=== PATIENT | male | born 1990 | race Caucasian/White ===

== ENCOUNTER 2018-03-12 14:43 | Inpatient (IN) | payer MEDICAID ==
[~2018-03-12] VITALS: Ht 167.6 cm; Wt 83.2 kg
[2018-03-12] MEDS ORDERED: SOD CHLORIDE 0.9% 1,000 ML IV STA (17:36)
[2018-03-12] MEDS ORDERED: IBUPROFEN 600 MG TAB PO ONE (18:00)
[2018-03-12] MEDS ORDERED: VANCOMYCIN 1 GM (PMX) 250 ML IVPB ONE (18:00)
[2018-03-12] MEDS ORDERED: PIPER-TAZO 3.375 GM IV (PMX) 100 ML IVPB ONE (18:00)
[2018-03-12] MEDS ORDERED: SOD CHLORIDE 0.9% 100 ML ONE (19:27)
[2018-03-12] MEDS ORDERED: IOHEXOL 300MG/ML 150 ML BTL ONE (19:27)
[2018-03-12] MEDS ORDERED: ONDANSETRON 4 MG INJ IV PRN (19:30)
[2018-03-12] MEDS ORDERED: HYDROCODONE/APAP (5/325) TAB PO PRN (19:30)
[2018-03-12] MEDS ORDERED: MAGNESIUM HYDROXIDE 30ML CUP PO PRN (19:30)
[2018-03-12] MEDS ORDERED: DOCUSATE SODIUM 100 MG CAP PO PRN (19:30)
[2018-03-12] MEDS ORDERED: ALBUTEROL/IPRATROPIUM (NEB) 3 ML AMP HHN PRN (19:30)
[2018-03-12] MEDS ORDERED: ACETAMINOPHEN 325 MG TAB PO PRN (19:30)
[2018-03-12] MEDS ORDERED: hydrALAzine 20 MG INJ IV PRN (19:30)
[2018-03-12] MEDS ORDERED: NITROGLYCERIN (SL) 0.4 MG TAB SL PRN (19:30)
[2018-03-12] MEDS ORDERED: NACL 0.9% 3 ML SYG IV SCH (19:30)
[2018-03-12] MEDS ORDERED: LORAZEPAM 2 MG INJ IV PRN (19:30)
[2018-03-12] MEDS ORDERED: morphine 4 MG/ML VIAL IV PRN (19:30)
--- NOTE | 2018-03-12 21:25 | ERD ---
ER Documentation Chief Complaint Chief Complaint right arm swelling , rednesss x 5 days HPI 27-year-old man complains of right arm redness, swelling, purulent discharge times 1 week. He left AGAINST MEDICAL ADVICE from [facility] yesterday but states he did receive 1 dose of IV antibiotics while in the ED. Patient has a history of drug abuse and injects drugs into his extremities. He denies fevers or chills, no chest pain or shortness of breath, no headache or blurry vision. ROS All systems reviewed and are negative except as per history of present illness. Medications Home Meds No Active Prescriptions or Reported Meds Allergies Allergies: Coded Allergies: No Known Allergy (Unverified , 03/12/18) PMhx/Soc IV drug abuse Medical and Surgical Hx: pt denies Medical Hx, pt denies Surgical Hx Hx Alcohol Use: No Hx Substance Use: No Hx Tobacco Use: No Smoking Status: Never smoker FmHx Family History: No diabetes Physical Exam Vitals Vital Signs Date Temp Pulse Resp B/P (MAP) Pulse Ox O2 O2 Flow FiO2 Time Delivery Rate 03/12/18 97.6 79 19 138/82 99 Room Air 17:25 (100) 03/12/18 97.6 87 18 141/78 99 14:49 (99) Physical Exam Const: No acute distress, afebrile Head: Atraumatic Eyes: Normal Conjunctiva ENT: Normal External Ears, Nose and Mouth. Neck: Full range of motion. No meningismus. Resp: Clear to auscultation bilaterally Cardio: Regular rate and rhythm, no murmurs Abd: Soft, non tender, non distended. Normal bowel sounds Skin: Diffuse skin erythema and induration over the right upper extremity consistent with cellulitis, no ulcers or vesicles noted, positive draining pustule Back: No midline or flank tenderness Ext: No cyanosis, patient has right upper extremity edema diffusely with diffuse erythema and induration, small draining pustule from the forearm as well Neur: Awake and alert x3, no focal deficits or facial asymmetry Psych: Normal Mood and Affect Result Diagram: 03/12/18181403/12/181814 Results 24 hrs Laboratory Tests Test 03/12/18 18:15 White Blood Count 7.8 10^3/ul Red Blood Count 4.67 10^6/ul Hemoglobin 13.3 g/dl Hematocrit 42.0 % Mean Corpuscular Volume 89.9 fl Mean Corpuscular Hemoglobin 28.5 pg Mean Corpuscular Hemoglobin Concent 31.7 g/dl Red Cell Distribution Width 12.8 % Platelet Count 332 10^3/UL Mean Platelet Volume 9.4 fl Immature Granulocytes % 0.400 % Neutrophils % 60.0 % Lymphocytes % 23.5 % Monocytes % 11.9 % Eosinophils % 3.7 % Basophils % 0.5 % Nucleated Red Blood Cells % 0.0 /100WBC Immature Granulocytes # 0.030 10^3/ul Neutrophils # 4.7 10^3/ul Lymphocytes # 1.8 10^3/ul Monocytes # 0.9 10^3/ul Eosinophils # 0.3 10^3/ul Basophils # 0.0 10^3/ul Nucleated Red Blood Cells # 0.0 10^3/ul Prothrombin Time 12.0 Sec Prothrombin Time Ratio 0.9 INR International Normalized Ratio 0.88 Activated Partial Thromboplast Time 32.8 Sec Sodium Level 141 mmol/L Potassium Level 3.7 mmol/L Chloride Level 99 mmol/L Carbon Dioxide Level 28 mmol/L Anion Gap 14 Blood Urea Nitrogen 7 mg/dl Creatinine 0.71 mg/dl Est Glomerular Filtrat Rate mL/min > 60 mL/min Glucose Level 90 mg/dl Calcium Level 9.6 mg/dl Total Bilirubin 0.2 mg/dl Direct Bilirubin 0.00 mg/dl Indirect Bilirubin 0.2 mg/dl Aspartate Amino Transf (AST/SGOT) 23 IU/L Alanine Aminotransferase (ALT/SGPT) 16 IU/L Alkaline Phosphatase 98 IU/L Total Protein 8.1 g/dl Albumin 4.4 g/dl Globulin 3.70 g/dl Albumin/Globulin Ratio 1.18 Lipase < 10 U/L Free Thyroxine 1.21 ng/dl Current Medications Medications Dose Sig/Ijeoma Start Time Status Last (Trade) Ordered Route PRN Stop Time Admin Dose Reason Admin Piperacillin 100 ml @ ONCE ONCE 03/12/18 DC 03/12/18 Sod/ 200 mls/hr IVPB 18:00 18:19 Tazobactam 03/12/18 18:29 Sod Vancomycin 250 ml @ ONCE ONCE 03/12/18 DC 03/12/18 HCl 125 mls/hr IVPB 18:00 18:00 03/12/18 19:59 Ibuprofen 600 mg ONCE ONCE 03/12/18 DC (Motrin) PO 18:00 03/12/18 18:01 Sodium 1,000 ml @ Q30M STAT 03/12/18 DC 03/12/18 Chloride 2,000 mls/hr IV 17:36 18:19 03/12/18 18:05 Sodium 1,000 ml @ [id number] IV 03/12/18 Chloride 75 mls/hr 19:08 Procedures/MDM IV line was established patient was placed on vehicle monitor technician rhythm strip revealed a sinus rhythm at about 80 bpm with upright P and T waves. Patient was afebrile I administered 2 L normal saline IV, ibuprofen 600 mg p.o., vancomycin 1 g IV and Zosyn 3.375 g IV I also order chest x-ray and a CT scan with IV contrast of the right upper extremity to help delineate the extent of the patient's cellulitis and determine if there is a deep space abscess. Patient refused both the studies and did not provide any reason as to why despite my and his nurses explanation as to the necessity. CBC was normal, electrolytes normal, liver function tests normal, troponin ne gative Patient will be admitted to [facility] for continued IV antibiotics and possible debridement. Departure Diagnosis: Primary Impression: Right arm cellulitis Additional Impression: IV drug abuse Condition: GIANNA Inman MD Mar 12, 2018 21:25
--- NOTE | 2018-03-12 23:33 | HP ---
Date/Time of Note Date/Time of Note DATE: 03/12/18 TIME: 23:33 Assessment/Plan Lines/Catheters IV C[facility]ter Type (from [facility]): Saline Lock Assessment/Plan Assessment/Plan 27-year-old male with history of IVDU here with right upper extremity cellulitis PLAN IV antibiotic Wound care and ID consult Methadone given history of IVDU Result Diagram: 03/12/18181403/12/181814 Results 24hrs Laboratory Tests Test 03/12/18 18:15 White Blood Count 7.8 Red Blood Count 4.67 L Hemoglobin 13.3 L Hematocrit 42.0 Mean Corpuscular Volume 89.9 Mean Corpuscular Hemoglobin 28.5 L Mean Corpuscular Hemoglobin Concent 31.7 L Red Cell Distribution Width 12.8 Platelet Count 332 Mean Platelet Volume 9.4 Immature Granulocytes % 0.400 Neutrophils % 60.0 Lymphocytes % 23.5 Monocytes % 11.9 H Eosinophils % 3.7 Basophils % 0.5 Nucleated Red Blood Cells % 0.0 Immature Granulocytes # 0.030 Neutrophils # 4.7 Lymphocytes # 1.8 Monocytes # 0.9 Eosinophils # 0.3 Basophils # 0.0 Nucleated Red Blood Cells # 0.0 Prothrombin Time 12.0 Prothrombin Time Ratio 0.9 INR International Normalized Ratio 0.88 Activated Partial Thromboplast Time 32.8 Sodium Level 141 Potassium Level 3.7 Chloride Level 99 Carbon Dioxide Level 28 Anion Gap 14 H Blood Urea Nitrogen 7 Creatinine 0.71 Est Glomerular Filtrat Rate mL/min > 60 Glucose Level 90 Calcium Level 9.6 Total Bilirubin 0.2 Direct Bilirubin 0.00 Indirect Bilirubin 0.2 Aspartate Amino Transf (AST/SGOT) 23 Alanine Aminotransferase (ALT/SGPT) 16 Alkaline Phosphatase 98 Total Protein 8.1 Albumin 4.4 Globulin 3.70 H Albumin/Globulin Ratio 1.18 Lipase < 10 L Free Thyroxine 1.21 HPI/ROS Admit Date/Time Admit Date/Time Mar 12, 2018 at 19:16 Hx of Present Illness 27-year-old male with a history of IVDU who presents the ER complaining of right upper extremity erythema, tenderness and swelling. Symptoms started about a week ago. Patient does inject into his extremities. He went to [facility] ER yesterday where he received IV antibiotic, but he left AMA. Vitals and basic labs within acceptable range. PMH/Family/Social Past Medical History Medications Current Medications IV Flush (NS 3 ml) 3 ml PER PROTOCOL IV ; Start 03/12/18 at 19:30 Ondansetron HCl (Zofran Inj) 4 mg Q6H PRN IV NAUSEA/VOMITING; Start 03/12/18 at 19:30 Acetaminophen (Tylenol Tab) 650 mg Q6H PRN PO .PAIN 1-3 OR TEMP; Start 03/12/18 at 19:30 Acetaminophen/ Hydrocodone Bitart ([place] (5/325)) 1 tab Q6H PRN PO .MOD PAIN 4- 6; Start 03/12/18 at 19:30 Morphine Sulfate (morphine) 2 mg Q4H PRN IV .SEVERE PAIN 7-10; Start 03/12/18 at 19:30 Docusate Sodium (Colace) 100 mg Q12H PRN PO .CONSTIPATION; Start 03/12/18 at 19:30 Magnesium Hydroxide (Milk Of Mag) 30 ml DAILY PRN PO .CONSTIPATION; Start 03/12/18 at 19:30 Heparin Sodium (Porcine) (Heparin (5000 Units/1ml)) 5,000 unit Q12 SC ; Start 03/12/18 at 21:00 Sodium Chloride 1,000 ml @ 75 mls/hr [id number] IV ; Start 03/12/18 at 19:08 Lorazepam (Ativan) 0.5 mg Q6H PRN IV ANXIETY; Start 03/12/18 at 19:30 Albuterol/ Ipratropium (Duoneb) 3 ml Q4H RESP THERAPY PRN HHN SHORTNESS OF BREATH; Start 03/12/18 at 19:30 Piperacillin Sod/ Tazobactam Sod 100 ml @ 200 mls/hr Q6 IVPB ; Start 03/13/18 at 00:00 Hydralazine HCl (Apresoline) 10 mg Q6H PRN IV ELEVATED BLOOD PRESSURE; Start 03/12/18 at 19:30 Nitroglycerin (Nitroglycerin (Sl Tab) 0.4 Mg) 1 tab Q5M PRN SL ANGINA; Start 03/12/18 at 19:30 Coded Allergies: No Known Allergy (Unverified , 03/12/18) Social History Smoking Status: Current every day smoker Exam/Review of Systems Vital Signs Vitals Vital Signs Date Temp Pulse Resp B/P (MAP) Pulse Ox O2 O2 Flow FiO2 Time Delivery Rate 03/12/18 97.6 75 15 137/86 100 Room Air 20:53 (103) NIRAJ CAROLINA MD Mar 12, 2018 23:33
[2018-03-12] MEDS: HEPARIN 5,000 UNIT/1 ML VIAL SC SCH (23:51)
[2018-03-12] MEDS: SOD CHLORIDE 0.45% 1,000 ML IV SCH (23:53)
[2018-03-12] MEDS: PIPER-TAZO 3.375 GM IV (PMX) 100 ML IVPB SCH (23:54)
--- NOTE | 2018-03-13 00:25 | NUR ---
CHARGE NURSE NOTE: Patient is attempting to walk off the unit to the cafeteria, advised patient he can not leave the unit. Patient said "I don't care, I'm going to do what I want. Can someone go to the cafeteria to get me food? They get me food at [place]." Advised patient he is to stay on the unit, and staff will not go get him food. Apologized for him craving food we don't have on the unit. Offered a sandwich, and Cup O Noodles, yet patient refused. Patient states he will check out and go to another hospital. Advised patient to get his cellulitis taken care of while he is here.
--- NOTE | 2018-03-13 01:10 | NUR ---
CHARGE NURSE NOTE: Security arrived to enforce staying on the unit. Patient asked for a Do Not Disturb sign, advised patient that is not possible.
[2018-03-13 02:00] VITALS: BP 133/63; PULSE 89; RESP 18
[2018-03-13] MEDS ORDERED: PENDING SANTYL ORDER FOR WOUND CARE XX PRN (03:30)
[2018-03-13] MEDS: PIPER-TAZO 3.375 GM IV (PMX) 100 ML IVPB SCH (05:19)
--- NOTE | 2018-03-13 05:20 | NUR ---
CHARGE NURSE NOTE: [employer] [place] arrived, confiscated a wet matchbook, "Delbert: brand e-cig, and black pocket knife. Items are in possession of security in a clear ziplock bag, with patient label.
--- NOTE | 2018-03-13 06:19 | NUR ---
Shift summary: Patient is a new admission. He came in for right forearm swelling. He was previously admitted to another hospital a week ago for the same problem but went home AMA. Patient is alert, oriented and ambulatory. VSS. He was restless, tried to leave the floor. Advised patient that he has an infection and needed to be treated. Patient wanted to go to the cafeteria but told it was not possible. His father came in and the patient calmed down. His father also bought him some food. He has an open wound wound on his right forearm, wound culture was sent to the lab. Wound was cleansed and covered with gauze. He also has other wounds in the body (see photo) but they are healing or scab. He was started on antibiotics. Patient has no pain. Security was called and an E-cig and a pocket knife were confiscated for safe keeping. This morning he refused blood draw. He is afebrile.
[2018-03-13] MEDS: SOD CHLORIDE 0.45% 1,000 ML IV SCH (08:28)
[2018-03-13] MEDS: HEPARIN 5,000 UNIT/1 ML VIAL SC SCH (08:35)
--- NOTE | 2018-03-13 08:56 | NUR ---
Patient continuing to refuse labs this morning. RN spoke with pt reinforcing importance of lab draw to ensure adequate ATB levels are being given and to monitor infection but pt still refusing and yelled at me to "get the f out". Will inform
--- NOTE | 2018-03-13 10:19 | NUR ---
Wound care Consult: 27-year-old male with history of IVDU here with right upper extremity cellulitis Wound care team consulted for wound present admission Right forearm open wound secondary from cellulitis. 0.8cm x 0.8cm x 0.5cm. Demarcated cellulitis wound started-out as a pustule which was punctured by patient vs IVD insertion site infection. Wound with serosanguineous drainage. Treatment recommendation include, cleanse with normal saline, pat dry, apply silver alginate dressing secured by foam border dressing daily and as needed. Raffi Linder RN MSN WOCN CM
--- NOTE | 2018-03-13 11:03 | NUR ---
Patient leaving unit AMA. Primary RN, Charge nurse, and nursing traffic sign supervisor all attempted to speak with patient regarding risks of leaving and not completing IV ATB. Pt states he is leaving anyway since we won't let him leave to smoke. RN attempted to offer to obtain doctors order for Nicotine patch or gum but pt refused. Pt agitated and adamant about leaving. IV removed with tip intact. Belongings returned to pt from security including e-cigarette and pocket knife. Addendum: 03/13/18 at 1132 by KAYLA RICO RN Dr Lewis made aware
--- NOTE | 2018-03-13 11:16 | NUR ---
SS NOTE MDO TO PROVIDE RESOURCES FOR CESSATION OF IV DRUG USE. PER RN, PT LEFT AMA BEFORE ABLE TO BE SEEN.
--- NOTE | 2018-03-13 14:04 | DS ---
Date/Time of Note Date/Time of Note DATE: 03/13/18 TIME: 14:00 Discharge Summary Admission/Discharge Info Admit Date/Time Mar 12, 2018 at 19:16 Discharge Date/Time Mar 13, 2018 at 11:00 Discharge Diagnosis 1. Right upper extremity cellulitis, antibiotics, PCP as soon as possible 2. IVDA 3. Signed AMA Patient Condition: Fair Hospital Course 27-year-old man complains of right arm redness, swelling, purulent discharge times 1 week. He left AGAINST MEDICAL ADVICE from [facility] yesterday but states he did receive 1 dose of IV antibiotics while in the ED. Patient has a history of drug abuse and injects drugs into his extremities. He denies fevers or chills, no chest pain or shortness of breath, no headache or blurry vision. Patient is admitted and given iv antibiotics with zosyn and vancomycin, but he signed AMA and left hospital this morning. Home Meds No Active Prescriptions or Reported Meds Follow-up Plan signed AMA follow up with PCP as soon as possible Primary Care Provider Care Physician No Primary Pending Labs Laboratory Tests Test 03/12/18 18:15 White Blood Count 7.8 10^3/ul (4.8-10.8) Red Blood Count 4.67 10^6/ul (4.70-6.10) Hemoglobin 13.3 g/dl (14.0-18.0) Hematocrit 42.0 % (42.0-52.0) Mean Corpuscular Volume 89.9 fl (82.0-101.0) Mean Corpuscular Hemoglobin 28.5 pg (29.0-33.0) Mean Corpuscular Hemoglobin Concent 31.7 g/dl (32.0-37.0) Red Cell Distribution Width 12.8 % (11.5-14.5) Platelet Count 332 10^3/UL (140-415) Mean Platelet Volume 9.4 fl (7.4-10.4) Immature Granulocytes % 0.400 % (0.001-0.429) Neutrophils % 60.0 % (39.0-77.0) Lymphocytes % 23.5 % (15.0-51.0) Monocytes % 11.9 % (0.0-11.0) Eosinophils % 3.7 % (0.0-7.0) Basophils % 0.5 % (0.0-2.0) Nucleated Red Blood Cells % 0.0 /100WBC (0.0-0.0) Immature Granulocytes # 0.030 10^3/ul (0.0-0.031) Neutrophils # 4.7 10^3/ul (1.6-7.5) Lymphocytes # 1.8 10^3/ul (0.8-2.9) Monocytes # 0.9 10^3/ul (0.3-0.9) Eosinophils # 0.3 10^3/ul (0.0-0.5) Basophils # 0.0 10^3/ul (0.0-0.1) Nucleated Red Blood Cells # 0.0 10^3/ul (0.0-0.0) Prothrombin Time 12.0 Sec (11.9-14.9) Prothrombin Time Ratio 0.9 INR International Normalized Ratio 0.88 Activated Partial Thromboplast Time 32.8 Sec (23.0-35.0) Sodium Level 141 mmol/L (135-144) Potassium Level 3.7 mmol/L (3.5-5.1) Chloride Level 99 mmol/L (97-110) Carbon Dioxide Level 28 mmol/L (21-31) Anion Gap 14 (5-13) Blood Urea Nitrogen 7 mg/dl (7-20) Creatinine 0.71 mg/dl (0.61-1.24) Est Glomerular Filtrat Rate mL/min > 60 mL/min (>60) Glucose Level 90 mg/dl (70-220) Calcium Level 9.6 mg/dl (8.4-10.2) Total Bilirubin 0.2 mg/dl (0.2-1.3) Direct Bilirubin 0.00 mg/dl (0.00-0.20) Indirect Bilirubin 0.2 mg/dl (0-1.1) Aspartate Amino Transf (AST/SGOT) 23 IU/L (15-46) Alanine Aminotransferase (ALT/SGPT) 16 IU/L (13-69) Alkaline Phosphatase 98 IU/L (42-121) Total Protein 8.1 g/dl (6.1-8.1) Albumin 4.4 g/dl (3.3-4.9) Globulin 3.70 g/dl (1.3-3.2) Albumin/Globulin Ratio 1.18 Lipase < 10 U/L (23-300) Free Thyroxine 1.21 ng/dl (0.79-2.35) RACHAEL LOYOLA MD Mar 13, 2018 14:03
--- NOTE | 2018-03-15 10:37 | QN ---
Documentation Comment Received call from microbiology stating MRSA of the wound was found, however unfortunately patient is homeless and did not give any phone number and also patient also left AGAINST MEDICAL ADVICE. If a phone number comes up, will attempt to reach patient GIANNA VELASQUEZ Mar 15, 2018 10:37
== END 2018-03-13 11:00 | disposition left against medical advice (07) | DRG 603 ==
LOC: E/R 14:43 → PP2 19:16
PROVIDERS: ADMIT Internal Medicine; ATTEND Internal Medicine
DX: L03.113 Cellulitis of right upper limb (principal); B95.62 Methicillin resistant Staphylococcus aureus infection as the cause of diseases classified elsewhere; F19.10 Other psychoactive substance abuse, uncomplicated; Z53.21 Procedure and treatment not carried out due to patient leaving prior to being seen by health care provider; Z59.0 Homelessness
CPT/HCPCS: 36415; 80053; 83690; 84439; 85025; 85610; 85730; 87040; 87070; 96374; 96375; J2543; J3370; J7030; Q9967